=== PATIENT | male | born 1945 | race Caucasian/White ===

== ENCOUNTER → 2020-02-09 08:51 | Outpatient (BNVA) | payer MEDICARE, OTHER, SELFPAY | PROVIDERS: Family Provider Electrodiagnostic Medicine; PCP Electrodiagnostic Medicine; Visit Provider Urology | DX: N40.1 Benign prostatic hyperplasia with lower urinary tract symptoms (principal); N31.8 Other neuromuscular dysfunction of bladder; Z12.5 Encounter for screening for malignant neoplasm of prostate | CPT/HCPCS: 81001 ==

== ENCOUNTER 2020-04-17 14:14 | Inpatient (IN) | payer MEDICARE, OTHER, SELFPAY ==
[2020-04-17] VITALS (13 sets, daily range): BP systolic 133–164; BP diastolic 72–92; PULSE 65–88; RESP 14–25; TEMP 36.8–37.4; O2SAT 90–98; BMI 33.0
--- NOTE | 2020-04-17 14:36 | XRR_ITS ---
PROCEDURE INFORMATION: Exam: XR Chest, 1 View Exam date and time: 04/17/2020 3:08 PM Age: 74 years old Clinical indication: Fever TECHNIQUE: Imaging protocol: XR of the chest Views: 1 view. COMPARISON: No relevant prior studies available. FINDINGS: Lungs: There are hazy opacities at the left lung base. Pleural space: Unremarkable. No pleural effusion. No pneumothorax. Heart/Mediastinum: Possible cardiomegaly. Heart size not optimally evaluated with a single AP view of the chest. Diaphragm: Mild elevation of left hemidiaphragm. Bones/joints: There is contour abnormality at the posterior aspects of the left 4th through 6th ribs consistent with fracture of unknown chronicity. XR/XR chest 1V portable [id number] IMPRESSION: 1. Nonspecific hazy opacities at the left lung base. Differential includes atelectasis and pneumonia. 2. There is contour abnormality at the posterior aspects of the left 4th through 6th ribs consistent with fracture of unknown chronicity.
--- NOTE | 2020-04-17 15:01 | ED_ITS ---
HPI - Fever General: Chief Complaint: Fever Stated Complaint: POSSIBLE COVID Time Seen by Provider: 04/17/20 14:34 Source: patient Mode of arrival: ambulatory Limitations: no limitations History of Present Illness: HPI Narrative: Mr. Martínez is a nice 74-year-old male who comes in complaining of generalized malaise, fatigue and weakness along with sore throat and cough. States the fatigue and malaise has been present for approximately 2 weeks but the past few days she developed a sore throat and cough. Patient has been exposed to someone who has the COVID-19 virus. He is denying any abdominal pain, vomiting, urinary frequency urgency or dysuria. Denies any diarrhea. Denies any blood in the stools or black tarry stools. Patient states overall his biggest complaint is profound fatigue. Patient did have a fever today though of 100.8. He is unaware of any other exacerbating or alleviating factors. Associated symptoms: Reports chills; Deny abdominal pain, flank pain, chest pain, confusion, diarrhea, dysuria, extremity pain, headache(s), nausea or vomiting Review of Systems Const: Reports: fever(s), chills, body aches, fatigue and malaise; Denies: diaphoresis Eyes: Denies: change in vision, blurry vision, photophobia, eye discomfort, eye discharge or eye redness ENMT: Denies: throat pain, odynophagia, hoarseness, swelling of lips/tongue, ear or mastoid pain, ear discharge, change in hearing or nasal discharge Card: Denies: chest pain, palpitations, irregular heart rhythm, edema, lightheadedness, syncope, pre-syncope, dyspnea on exertion or orthopnea Resp: Denies: dyspnea, productive cough, non-productive cough, wheezing, hemoptysis or chest congestion GI: Denies: abdominal pain, nausea, vomiting, hematemesis, coffee ground emesis, heartburn, diarrhea, constipation, GI cramping, hematochezia or melena : Denies: flank pain, dysuria, urinary frequency, urinary urgency or hematuria Musc: Denies: neck pain, back pain, extremity pain, extremity swelling, joint pain, joint swelling, joint redness, joint warmth or joint stiffness Skin/Breast: Denies: rash, pruritus, erythema or skin tenderness Neuro: Denies: headache(s), numbness in extremities, weakness in extremities, sensory changes, lack of coordination, difficulty walking, dizziness, vertigo, confusion, Slurred speech present or seizure-like activity Sai/Lymph: Denies: easy bruising, easy bleeding, petechiae, purpura or enlar ged lymph nodes All/Imm: Denies: urticaria, throat swelling, tongue swelling, facial swelling or acute wheezing PFSH ED PFSH: Medical History (Updated 04/17/20 @ 16:45 by Slim Rhoades MD) BPH loc w urin obs/LUTS Diaphragm, rupture Frequency-urgency syndrome Hypercholesteremia Hypertension Surgical History H/O hernia repair H/O neck surgery H/O: knee surgery rt knee arthroscopic Family History Mother , at age 90 Alzheimer disease Father , at age 95 CHF (congestive heart failure) Social History Smoking and tobacco status: never smoked Alcohol intake: never Marital status: Current occupational status: retired History of recent travel: No Physical Exam Const: COMMON NORMALS: no acute distress, patient oriented x3, no limitations, healthy appearing and well nourished GENERAL APPEARANCE: cooperative, well kempt and well developed HENMT: COMMON NORMALS: normocephalic, atraumatic, external ears normal, EAC's normal and Normal external nose present HEAD & SCALP: normal to inspection, normocephalic and atraumatic FACE & SINUS: normal facial exam and face symmetric NOSE: Normal external nose present and Normal nares present EXTERNAL EAR: Yes external ears normal EXTERNAL AUDITORY CANAL: EAC's normal MOUTH: Normal oral and palatal mucosa present, lip normal and tongue normal Eye: COMMON NORMALS: Equal, round and reactive pupils present and conjunctivae normal GENERAL EYE: appearance normal, both eyes and all related structures ALIGNMENT: Yes alignment normal PERIORBITAL: periorbital findings normal EYELID: eyelids normal CONJUNCTIVA: Yes conjunctivae normal SCLERA: sclerae normal PUPIL: Yes Equal, round and reactive pupils present Neck/C-Spine: COMMON NORMALS: full ROM, no lymphadenopathy, supple, no meningeal signs and no JVD GENERAL: Yes normal visual inspection and Yes trachea midline Chest: COMMONS NORMALS: normal inspection of the chest and normal palpation of entire chest wall Resp: COMMON NORMALS: normal respiratory effort, No retractions, No use of accessory muscles and clear to auscultation bilaterally EFFORT & INSPECTION: Yes able to speak in complete sentences and Yes symmetric chest movement AUSCULTATION: clear to auscultation bilaterally, no crackles, no rales, no rhonchi and no wheezes Cardio: COMMON NORMALS: no JVD, regular rate, regular rhythm, S1 normal heart sound present and S2 normal heart sound present RATE: regular rate RHYTHM: regular rhythm HEART SOUNDS: S1 normal heart sound present, S2 normal heart sound present, no click, no gallops, no murmurs, no rubs and abnormal split S2 GI: COMMON NORMALS: Soft to palpation and No hepatosplenomegaly present PALPATION: Yes Soft to palpation, No Tenderness to palpation present (GI), No Guarding due to palpation present (GI), No Rigid due to palpation, Yes No hepatosplenomegaly present, No Hernia present, No Palpable mass present and No Pulsatile mass present : COMMON NORMALS: Yes no CVA tenderness BLADDER/KIDNEY EXAM: Yes no CVA tenderness Back/Pelvis: COMMON NORMALS: no CVA tenderness, thoracic and lumbar spine normal to inspection, no thoracic nor lumbar tenderness and thoraco-lumbar ROM normal Extremity: COMMON NORMALS: normal to inspection, full ROM, capillary refill normal, no joint enlargement, no clubbing, cyanosis or edema and no calf tenderness Neuro: COMMON NORMALS: patient oriented x3, CN's II-XII intact bilaterally, moves all extremities, no focal motor deficits and no sensory deficits noted MENINGEAL SIGNS: Yes no meningeal signs SPEECH: speech normal Psych: COMMON NORMALS: mental status grossly normal, Normal thought process present, cooperative, normal affect, speech normal and activity/motor behavior normal APPEARANCE: Yes well kempt SPEECH: Yes normal speech THOUGHT PROCESS: Normal thought process present Skin: COMMON NORMALS: no rashes or lesions noted, turgor normal, no jaundice, no petechiae and no mottling GENERAL SKIN EXAM: no rashes or lesions noted and turgor normal Course Vital Signs: Vital signs: Vital Signs Temperature 99.3 F 04/17/20 14:25 Pulse Rate 70 04/17/20 17:07 Respiratory Rate 16 04/17/20 17:07 Blood Pressure 133/74 04/17/20 17:07 Pulse Oximetry 98 04/17/20 17:07 MDM - Fever MDM Narrative: Medical decision making narrative: Mr. Martínez is a nice 74-year-old male who comes in with shortness of breath and hypoxia. He has a known covert exposure. He test COVID positive. He will need to be placed in the hospital on Redimisivere and Decadron. Patient does not currently look septic and is not distressed. The case was reviewed with Dr. Rhoades and he agrees to admission to the viral ICU. Lab Data: Attestation: I reviewed the patient's lab results. Labs: Lab Results 04/17/20 04/17/20 04/17/20 Range/Units 15:00 15:00 15:00 WBC 3.6 L (4.0-10.0) 10^3/ uL RBC 4.25 (4.1-5.3) 10^6/u L Hgb 13.3 (11.7-16.6) g/dL Hct 39.1 L (42.0-52.0) % MCV 92.0 (80-94) fL MCH 31.3 (28.0-34.0) pg MCHC 34.0 (30.0-36.0) g/dL RDW 13.2 (12.1-15.1) % Plt Count 164 (130-400) 10^3/c mm MPV 11.0 H (7.4-10.4) fL Neut % (Auto) 55.5 % Lymph % (Auto) 23.6 % [place] % (Auto) 18.1 % Eos % (Auto) 2.2 % Baso % (Auto) 0.3 % Neut # (Auto) 2.00 (1.8-7.7) 10^3/u L Lymph # (Auto) 0.9 (0.8-4.8) 10^3/u L [place] # (Auto) 0.7 (0.2-0.9) 10^3/u L Eos # (Auto) 0.1 (0.0-0.8) 10^3/u L Baso # (Auto) 0.0 (0.0-0.1) 10^3/u L Nucleated RBC % (a uto) 0 % Nucleated RBCs # 0.0 /100WBC D-Dimer (0-0.59) ug/mIFE U Specimen Type Sample Site ABG pH (7.35-7.45) ABG pCO2 (35-45) mmHg ABG pO2 (80.0-100.0) mmH g ABG HCO3 (22-26) mmol/L ABG Base Excess (-2.0-2.0) mmol/ L [place] Test Hematocrit (42-52) % O2 Delivery Device Press Tender Incendiary Grenade ID Sodium 138 (136-145) mmol/L Potassium 3.4 L (3.5-5.1) mmol/L Chloride 101 (98-107) mmol/L Carbon Dioxide 28 (22-29) mmol/L Anion Gap 12.4 (5-19) BUN 12 (8-23) mg/dL Creatinine 0.8 (0.7-1.2) mg/dL GFR Calculation Not Reportable Glucose 93 (65-115) mg/dL Calculated Osmolal ity 282 L (285-295) mOsm/k g Lactic Acid 1.5 (0.5-2.2) mmol/L Calcium 8.2 L (8.5-10.5) mg/dL Magnesium 1.6 L (1.7-2.3) mg/dL Total Bilirubin 0.5 (0.15-1.2) mg/dL AST 29 (0-40) U/L ALT 26 (0-41) U/L Alkaline Phosphata se 110 (40-130) IU/L Lactate Dehydrogen ase (135-225) U/L Troponin T Baselin e (0-15) ng/L C-Reactive Protein (0.0-4.9) mg/L NT-Pro-B Natriuret Pep (0-450) pg/mL Total Protein 7.3 (6.6-8.7) g/dL Albumin 3.7 (3.5-5.2) g/dL Globulin 3.6 (1.3-4.6) g/dL Influenza Type A A g (Negative) Influenza Type B A g (Negative) SARS-CoV-2 Ag (Rap id) (Negative) 04/17/20 04/17/20 04/17/20 Range/Units 15:00 15:00 15:00 WBC (4.0-10.0) 10^3/ uL RBC (4.1-5.3) 10^6/u L Hgb (11.7-16.6) g/dL Hct (42.0-52.0) % MCV (80-94) fL MCH (28.0-34.0) pg MCHC (30.0-36.0) g/dL RDW (12.1-15.1) % Plt Count (130-400) 10^3/c mm MPV (7.4-10.4) fL Neut % (Auto) % Lymph % (Auto) % [place] % (Auto) % Eos % (Auto) % Baso % (Auto) % Neut # (Auto) (1.8-7.7) 10^3/u L Lymph # (Auto) (0.8-4.8) 10^3/u L [place] # (Auto) (0.2-0.9) 10^3/u L Eos # (Auto) (0.0-0.8) 10^3/u L Baso # (Auto) (0.0-0.1) 10^3/u L Nucleated RBC % (a uto) % Nucleated RBCs # /100WBC D-Dimer (0-0.59) ug/mIFE U Specimen Type Sample Site ABG pH (7.35-7.45) ABG pCO2 (35-45) mmHg ABG pO2 (80.0-100.0) mmH g ABG HCO3 (22-26) mmol/L ABG Base Excess (-2.0-2.0) mmol/ L [place] Test Hematocrit (42-52) % O2 Delivery Device Press Tender Incendiary Grenade ID Sodium (136-145) mmol/L Potassium (3.5-5.1) mmol/L Chloride (98-107) mmol/L Carbon Dioxide (22-29) mmol/L Anion Gap (5-19) BUN (8-23) mg/dL Creatinine (0.7-1.2) mg/dL GFR Calculation Glucose (65-115) mg/dL Calculated Osmolal ity (285-295) mOsm/k g Lactic Acid (0.5-2.2) mmol/L Calcium (8.5-10.5) mg/dL Magnesium (1.7-2.3) mg/dL Total Bilirubin (0.15-1.2) mg/dL AST (0-40) U/L ALT (0-41) U/L Alkaline Phosphata se (40-130) IU/L Lactate Dehydrogen ase (135-225) U/L Troponin T Baselin e (0-15) ng/L C-Reactive Protein (0.0-4.9) mg/L NT-Pro-B Natriuret Pep 55 (0-450) pg/mL Total Protein (6.6-8.7) g/dL Albumin (3.5-5.2) g/dL Globulin (1.3-4.6) g/dL Influenza Type A A g Negative (Negative) Influenza Type B A g Negative (Negative) SARS-CoV-2 Ag (Rap id) Positive H (Negative) 04/17/20 04/17/20 04/17/20 Range/Units 15:00 15:00 15:00 WBC (4.0-10.0) 10^3/ uL RBC (4.1-5.3) 10^6/u L Hgb (11.7-16.6) g/dL Hct (42.0-52.0) % MCV (80-94) fL MCH (28.0-34.0) pg MCHC (30.0-36.0) g/dL RDW (12.1-15.1) % Plt Count (130-400) 10^3/c mm MPV (7.4-10.4) fL Neut % (Auto) % Lymph % (Auto) % [place] % (Auto) % Eos % (Auto) % Baso % (Auto) % Neut # (Auto) (1.8-7.7) 10^3/u L Lymph # (Auto) (0.8-4.8) 10^3/u L [place] # (Auto) (0.2-0.9) 10^3/u L Eos # (Auto) (0.0-0.8) 10^3/u L Baso # (Auto) (0.0-0.1) 10^3/u L Nucleated RBC % (a uto) % Nucleated RBCs # /100WBC D-Dimer 0.39 (0-0.59) ug/mIFE U Specimen Type Sample Site ABG pH (7.35-7.45) ABG pCO2 (35-45) mmHg ABG pO2 (80.0-100.0) mmH g ABG HCO3 (22-26) mmol/L ABG Base Excess (-2.0-2.0) mmol/ L [place] Test Hematocrit (42-52) % O2 Delivery Device Press Tender Incendiary Grenade ID Sodium (136-145) mmol/L Potassium (3.5-5.1) mmol/L Chloride (98-107) mmol/L Carbon Dioxide (22-29) mmol/L Anion Gap (5-19) BUN (8-23) mg/dL Creatinine (0.7-1.2) mg/dL GFR Calculation Glucose (65-115) mg/dL Calculated Osmolal ity (285-295) mOsm/k g Lactic Acid (0.5-2.2) mmol/L Calcium (8.5-10.5) mg/dL Magnesium (1.7-2.3) mg/dL Total Bilirubin (0.15-1.2) mg/dL AST (0-40) U/L ALT (0-41) U/L Alkaline Phosphata se (40-130) IU/L Lactate Dehydrogen ase 178 (135-225) U/L Troponin T Baselin e 18 H (0-15) ng/L C-Reactive Protein 8.1 H (0.0-4.9) mg/L NT-Pro-B Natriuret Pep (0-450) pg/mL Total Protein (6.6-8.7) g/dL Albumin (3.5-5.2) g/dL Globulin (1.3-4.6) g/dL Influenza Type A A g (Negative) Influenza Type B A g (Negative) SARS-CoV-2 Ag (Rap id) (Negative) 04/17/20 Range/Units 15:39 WBC (4.0-10.0) 10^3/ uL RBC (4.1-5.3) 10^6/u L Hgb (11.7-16.6) g/dL Hct (42.0-52.0) % MCV (80-94) fL MCH (28.0-34.0) pg MCHC (30.0-36.0) g/dL RDW (12.1-15.1) % Plt Count (130-400) 10^3/c mm MPV (7.4-10.4) fL Neut % (Auto) % Lymph % (Auto) % [place] % (Auto) % Eos % (Auto) % Baso % (Auto) % Neut # (Auto) (1.8-7.7) 10^3/u L Lymph # (Auto) (0.8-4.8) 10^3/u L [place] # (Auto) (0.2-0.9) 10^3/u L Eos # (Auto) (0.0-0.8) 10^3/u L Baso # (Auto) (0.0-0.1) 10^3/u L Nucleated RBC % (a uto) % Nucleated RBCs # /100WBC D-Dimer (0-0.59) ug/mIFE U Specimen Type Arterial Sample Site Radial, right ABG pH 7.43 (7.35-7.45) ABG pCO2 41.9 (35-45) mmHg ABG pO2 61.9 L (80.0-100.0) mmH g ABG HCO3 27.9 H (22-26) mmol/L ABG Base Excess 3.2 H (-2.0-2.0) mmol/ L [place] Test Pos Hematocrit 40.0 L (42-52) % O2 Delivery Device Room air Press Tender Incendiary Grenade ID [place] Sodium (136-145) mmol/L Potassium (3.5-5.1) mmol/L Chloride (98-107) mmol/L Carbon Dioxide (22-29) mmol/L Anion Gap (5-19) BUN (8-23) mg/dL Creatinine (0.7-1.2) mg/dL GFR Calculation Glucose (65-115) mg/dL Calculated Osmolal ity (285-295) mOsm/k g Lactic Acid (0.5-2.2) mmol/L Calcium (8.5-10.5) mg/dL Magnesium (1.7-2.3) mg/dL Total Bilirubin (0.15-1.2) mg/dL AST (0-40) U/L ALT (0-41) U/L Alkaline Phosphata se (40-130) IU/L Lactate Dehydrogen ase (135-225) U/L Troponin T Baselin e (0-15) ng/L C-Reactive Protein (0.0-4.9) mg/L NT-Pro-B Natriuret Pep (0-450) pg/mL Total Protein (6.6-8.7) g/dL Albumin (3.5-5.2) g/dL Globulin (1.3-4.6) g/dL Influenza Type A A g (Negative) Influenza Type B A g (Negative) SARS-CoV-2 Ag (Rap id) (Negative) Imaging Data^: CXR: Attestation: I personally reviewed and interpreted this imaging study as follows: My impression: Poor inspiration. Bilateral interstitial prominence. Cardiomegaly. EKG Data^: EKG 1: Attestation: I personally reviewed and interpreted this EKG as follows: EKG interpretation date: 04/17/20 EKG interpretation time: 16:31 Interpretation: Normal sinus rhythm at 66 beats a minute, no blocks, normal intervals, no acute ST-T wave changes. Discharge Plan Discharge Patient Disposition: Admitted As Inpatient Admit Provider: Slim Rhoades Clinical Impression: Viral pneumonitis, Hypoxemia, COVID-19 virus infection Condition: Stable Referrals: Elder Gutierrez DO [Primary Care Provider] - Discharge Date/Time: 04/17/20 17:11 Coding Level of Care Code ED Apprentice Lineman Third Step for Chg Fwd Exam Comprehensive
--- NOTE | 2020-04-17 15:11 | PC.NURSE ---
patient swabbed for COVID at this time
[2020-04-17] MEDS: ondansetron 2 mg/ML SDV 2 mL 4 MG IVP (15:12)
[2020-04-17] MEDS: sodium chloride 0.9% 1,000 ML 100 ML IV (15:12)
[2020-04-17] MEDS: piperacillin-tazobactam 3.375 GM in sodium chloride 0.9% (plus) 50 ML IV (15:12)
[2020-04-17 15:17] LABS: Basophils % 0.3 %; Eosinophils # 0.1 10^3/uL (0.0-0.8); Eosinophils % 2.2 %; Hematocrit 39.1 % (42.0-52.0); Hemoglobin 13.3 g/dL (11.7-16.6); Lymphocytes # 0.9 10^3/uL (0.8-4.8); Lymphocytes % 23.6 %; Mean Corpuscular Hemoglobin 31.3 pg (28.0-34.0); Monocytes # 0.7 10^3/uL (0.2-0.9); Monocytes % 18.1 %; Neutrophils % 55.5 %; Nucleated Red Blood Cells % 0 %; Platelet Count 164 10^3/cmm (130-400); Red Blood Count 4.25 10^6/uL (4.1-5.3); Red Cell Distribution Width 13.2 % (12.1-15.1); White Blood Count 3.6 10^3/uL (4.0-10.0)
[2020-04-17 15:37] LABS: Lactic Sepsis W/Reflex 1.5 mmol/L (0.5-2.2)
[2020-04-17 15:38] LABS: Alanine Aminotransferase 26 U/L (0-41); Albumin Level 3.7 g/dL (3.5-5.2); Alkaline Phosphatase 110 IU/L (40-130); Anion Gap 12.4 (5-19); Aspartate Amino Transferase 29 U/L (0-40); Carbon Dioxide 28 mmol/L (22-29); Chloride 101 mmol/L (98-107); Globulin 3.6 g/dL (1.3-4.6); Glucose 93 mg/dL (65-115); Magnesium 1.6 mg/dL (1.7-2.3); Potassium 3.4 mmol/L (3.5-5.1); Sodium 138 mmol/L (136-145); Total Bilirubin 0.5 mg/dL (0.15-1.2); Total Protein 7.3 g/dL (6.6-8.7)
[2020-04-17 15:46] LABS: Influenza A by IFA Negative (Negative); Influenza B by IFA Negative (Negative)
[2020-04-17 15:47] LABS: SARS Covid-2 Antigen Positive (Negative)
[2020-04-17 15:49] LABS: Blood Urea Nitrogen 12 mg/dL (8-23); Calcium 8.2 mg/dL (8.5-10.5); Osmolality Calculated 282 mOsm/kg (285-295)
[2020-04-17 15:52] LABS: ABG PCO2 41.9 mmHg (35-45); ABG PH Result 7.43 (7.35-7.45); Base Excess ABG 3.2 mmol/L (-2.0-2.0); Blood Gas Allen Test Pos; Blood Gas Operator Identificat MONRO; Blood Gas Sample Site Radial, right; Blood Gas Sample Type Arterial; HCO3 ABG 27.9 mmol/L (22-26); Oxygen Device ROOM AIR; PO2 ABG 61.9 mmHg (80.0-100.0)
--- NOTE | 2020-04-17 15:52 | ECG_ITS ---
[facility] Test Date: 2020-04-17 Pat Name: Omid Martínez Department: Room: Gender: Male History Teacher: : 1945 Requested By: Dominique Humphrey Order Number: [id number] Gonzales MD: Gwen Gunn M.D. Measurements Intervals [place] Rate: 66 P: 24 NV: 200 QRS: 42 QRSD: 100 T: 29 QT: 399 QTc: 420 Interpretive Statements SINUS RHYTHM No previous ECG available for comparison Electronically Signed On 04-18-2020 7:51:39 CDT by Gwen Gunn M.D. [email or web address]
--- NOTE | 2020-04-17 15:52 | CTR_ITS ---
PROCEDURE INFORMATION: Exam: CT Angiography Chest With Contrast Exam date and time: 04/17/2020 4:02 PM Age: 74 years old Clinical indication: Shortness of breath; Prior surgery; Surgery date: 6+ months; Surgery type: Diaphragm; Patient HX: Covid + w hypoxia and cough TECHNIQUE: Imaging protocol: Computed tomographic angiography of the chest with intravenous contrast. 3D rendering (Not supervised by radiologist): MIP and/or 3D reconstructed images were created by the technologist. Radiation optimization: All CT scans at this facility use at least one of these dose optimization techniques: automated exposure control; mA and/or kV adjustment per patient size (includes targeted exams where dose is matched to clinical indication); or iterative reconstruction. Contrast material: OMNI 350; Contrast volume: 95 ml; Contrast route: INTRAVENOUS (IV); COMPARISON: CR XR chest 1V portable [id number] 04/17/2020 2:53 PM RADIATION DOSE METRICS: Total DLP (mGy-cm): 606.12 FINDINGS: Pulmonary arteries: Normal. No pulmonary emboli. Aorta: Unremarkable. No aortic aneurysm. No aortic dissection. Lungs: There are scattered patchy ground-glass opacities in the bilateral lungs. Streaky densities at the lung bases are most consistent with scarring and/or atelectasis. There are pulmonary parenchymal calcifications consistent with remote granulomatous organism exposure. Pleural space: Unremarkable. No pneumothorax. No pleural effusion. Heart: Unremarkable. No cardiomegaly. No pericardial effusion. Mediastinal space: Small hiatal hernia. There is esophageal mucosal thickening. Lymph nodes: There are calcified mediastinal and perihilar lymph nodes consistent with prior granulomatous exposure. There is perihilar and mediastinal lymphadenopathy. Bones/joints: Chronic/healed fractures of the left 4th through 8th ribs. There is partial osseous fusion between the left 5th through 7th ribs. Soft tissues: Unremarkable. CT/CT angio chest PE protcl [id number] IMPRESSION: 1. There are scattered patchy bilateral pulmonary ground-glass opacities. Differential includes atypical pneumonia and pulmonary edema. 2. Perihilar and mediastinal lymphadenopathy. 3. There is esophageal mucosal thickening. Differential includes esophagitis and neoplasm. Radiation Dose CTDIVOL = (mGy): DLP = 606.12 (mGy-cm)
[2020-04-17 15:58] LABS: NT Pro B Type Natriuretic Pept 55 pg/mL (0-450)
[2020-04-17 16:21] LABS: C Reactive Protein 8.1 mg/L (0.0-4.9); D Dimer 0.39 ug/mIFEU (0-0.59); Lactate Dehydrogenase 178 U/L (135-225)
[2020-04-17 16:22] LABS: Troponin(5th) Baseline 18 ng/L (0-15)
--- NOTE | 2020-04-17 16:41 | PM.HP ---
Providers/Chief Complaint Primary Care Provider: Elder Gutierrez DO Chief Complaint: POSSIBLE COVID History of Present Illness Omid Martínez is a 74 year old male with past medical history of hypertension, type 2 diabetes mellitus who presented to the ER today because of fever last night as high up 100.3 Fahrenheit. As per the patient he has been having weakness and feeling low of energy for last 2 months getting worse for last 2 weeks. He is also been complaining of cough with mild expectoration. He states he feels as if he is not able to catch her breath for last 1 week. He thinks he got the infection from 1 of his friends at [facility] 2 weeks ago. Apparently the friend is also positive for COVID-19 has been treated for the same at [place] for last 10 days. He denies of having any headache, dizziness, chest pain, palpitations, nausea, vomiting. He states his symptoms are mostly feeling weak, generalized body pain generalized joint pains, stuffiness of the nose. He denies of having any changes in sense of smell and taste. His blood work in the ER showed white count of 3.6, hemoglobin of 13.3, d-dimer of 0.3, ABG showing a PCO2 of 41, PO2 of 61, sodium of 138, potassium of 3.4, lactate of 1.5, calcium of 8.2, rapid antigen test positive. Chest x-ray showed nonspecific hazy opacities in left lung base. Review of Systems General: Reports: 10 or more systems reviewed and unremarkable except in HPI and below Const: Denies: fever(s), chills, body aches, change in appetite, change in weight, malaise, night sweats, diaphoresis, change in sleep pattern, daytime sleepiness or snoring Eyes: Denies: change in vision, blurry vision, photophobia, eye discomfort or eye discharge ENMT: Denies: throat pain, enlarged tonsils, hoarseness, mouth pain, oral sores, dry mouth, tinnitus, nasal congestion or post nasal drip Card: Denies: chest pain, palpitations, irregular heart rhythm, edema, swelling of feet/ankles, lightheadedness, syncope, pre-syncope, dyspnea on exertion, orthopnea, leg pain with exertion or acrocyanosis Resp: Denies: dyspnea, productive cough, non-productive cough, wheezing, stridor, pain on inspiration, change in phlegm color, hemoptysis or chest congestion GI: Denies: abdominal pain, nausea, vomiting, hematemesis, coffee ground emesis, dysphagia, heartburn, diarrhea, constipation, bloating, GI cramping, change in bowel habits, pain on defecation, hematochezia or melena : Denies: flank pain, difficulty urinating, dysuria, urinary frequency, urinary urgency, urinary hesitancy, urinary dribbling, difficulty starting urination, change in urine stream, nocturia or hematuria Musc: Denies: neck pain, back pain, extremity pain, joint pain, joint swelling, joint redness, joint stiffness or limited range of motion Neuro: Denies: headache(s), numbness in extremities, weakness in extremities, sensory changes, lack of coordination, difficulty walking, frequent falls, dizziness, vertigo, confusion, Slurred speech present, difficulty communicating thoughts or seizure-like activity Psych: Denies: anxiety, depression, mood swings, panic attacks, hopelessness or irritability Endo: Denies: polyuria, polydipsia, tired all the time, cold intolerance, excessive sweating, flushing or heat intolerance Sai/Lymph: Denies: easy bruising or easy bleeding All/Imm: Denies: tongue swelling, facial swelling or acute wheezing Medications/Allergies Home Medications Medication Instructions Recorded Confirmed Last Taken Type alfuzosin 10 mg tablet,extended 10 mg PO DAILY #90 tab 02/09/20 04/17/20 Unknown Rx release 24 hr amlodipine 10 mg tablet 10 mg PO DAILY 02/09/20 04/17/20 Unknown History finasteride 5 mg tablet 5 mg PO DAILY 02/09/20 04/17/20 Unknown History hydrochlorothiazide 12.5 mg tablet 12.5 mg PO DAILY 02/09/20 04/17/20 Unknown History lovastatin 20 mg tablet 20 mg PO DAILY 02/09/20 04/17/20 Unknown History metformin 1,000 mg tablet 1,000 mg PO BID 02/09/20 04/17/20 Unknown History metoprolol succinate 50 mg 50 mg PO DAILY 02/09/20 04/17/20 Unknown History tablet,extended release 24 hr oxybutynin chloride 10 mg 10 mg PO DAILY #30 tab 02/09/20 04/17/20 Unknown Rx tablet,extended release 24 hr sulindac 150 mg tablet 150 mg PO BID 02/09/20 04/17/20 Unknown History Allergies Allergy/AdvReac Type Severity Reaction Status Date / Time No Known Allergies Allergy Unverified 02/09/20 08:43 PFSH Acute PFSH: Medical History BPH loc w urin obs/LUTS Diaphragm, rupture Frequency-urgency syndrome Hypercholesteremia Hypertension Surgical History H/O hernia repair H/O neck surgery H/O: knee surgery rt knee arthroscopic Family History Mother , at age 90 Alzheimer disease Father , at age 95 CHF (congestive heart failure) Social History Smoking and tobacco status: never smoked Alcohol intake: never Marital status: Current occupational status: retired History of recent travel: No Vitals/I&O/Wt Last Vital Signs Temp 99.3 F 04/17/20 14:25 Pulse 88 04/17/20 15:10 Resp 20 H 04/17/20 15:10 BP 148/88 04/17/20 15:10 Pulse Ox 94 04/17/20 15:10 Weight last 48 hrs Weight 113.398 kg Physical Exam Narrative: EXAM NARRATIVE: General: No acute distress, AO x3 HEENT: PERRLA, pupils bilaterally equal and reactive Chest: Normal vesicular breath sounds, bilateral occasional rhonchi present, equal good air entry bilaterally CVS: S1-S2 regular, no murmurs, no tachycardia, no gallops, no rubs Abdomen: Soft, nontender, no organomegaly, bowel sounds present Neuro: No focal deficits, no facial deformity, AO x3, power 5/5 in all limbs Data : 04/17/20 15:00 04/17/20 15:00 A&P Assessment and plan (1) COVID-19 virus infection: Status: Acute (2) Hypoxemia: Status: Acute (3) Viral pneumonitis: Status: Acute (4) Hypertension: Status: Acute (5) BPH loc w urin obs/LUTS: Status: Acute (6) Diabetes mellitus: Status: Acute Additional A&P Information Acute hypoxic respiratory failure: Most likely because of COVID-19 pneumonia: Patient requiring 3 L to maintain saturation over 90%. Moderate covered pneumonia. Start patient on antiviral treatment with Remdesevir. Dexamethasone 6 mg IV for 5 days. Vitamin C, zinc. Tessalon Perles as needed. Advair and Spiriva formulary treatment. Oxygen supplementation keeping saturation over 90%. Incentive spirometry, flutter valve. Continue to monitor inflammatory markers including LDH, ferritin, CRP, ESR, d-dimer daily. Check CTA PE to rule out PE for now. Start Eliquis 5 mg twice daily. CTA PE will tell for how long patient would require anticoagulation as an outpatient. Check procalcitonin, MRSA swab, sputum for Gram stain. For now start patient on levofloxacin 500 mg QD for now. HTN: Goal BP less thna 140/90 mmhg. C/w home dose of Amlo, metoprolol for now. Hold hydrochlorothiazide for now. Gentle IV hydration with normal saline at 75 cc/h. Type 2 DM: Hold OHA Sliding scale insulin Continue chronic medication like alfuzosin, finasteride, statins. Nonspecific thickening of the esophagus: Patient has been complaining of weakness for last 2 months. Not sure about weight loss. Cannot rule out malignancy. Most likely need to follow-up as an outpatient with EGD and colonoscopy once COVID-19 negative. We will check H. pylori. Full code. Cardiac diabetic diet. Eliquis will also help with DVT prophylaxis. Protonix for PUD prophylaxis Attestations Medical Necessity Statement*: More than 2 midnights for acute hypoxia because of COVID-19 pneumonia Time Spent in Patient Care: Greater than 35 minutes (>than 50% of time spent in counselling and/or direct pt care on unit). 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
[2020-04-17] MEDS: dexamethasone 10 mg/mL INJ 8 MG IVP (16:50)
[2020-04-17] MEDS: magnesium sulfate premix 2 GM/50 ML PIGGYBACK IV (16:50)
[2020-04-17] MEDS: iohexol 350 mg/mL 100 mL Btl IV (17:17)
--- NOTE | 2020-04-17 17:52 | ECG_ITS ---
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 Measurements Intervals Rogers Rate: 67 P: 24 [place]: 210 QRS: 9 QRSD: 109 T: 15 QT: 387 QTc: 411 Interpretive Statements SINUS RHYTHM WITH FIRST DEGREE AV BLOCK Compared to ECG 04/17/2020 16:31:20 First degree AV block now present Electronically Signed On 04-18-2020 8:19:35 CDT by Gwen Gunn M.D. [email or web address]
--- NOTE | 2020-04-17 17:54 | PC.NURSE ---
BG 109 at this time no insulin needed per sliding scale
[2020-04-17] MEDS: ascorbic acid 500 mg Tablet PO (18:08)
[2020-04-17] MEDS: apixaban 5 mg Tablet PO (18:08)
[2020-04-17 18:26] LABS: Procalcitonin 0.06 ng/mL (0-0.5)
[2020-04-17 18:34] LABS: Add Urine Microscopic? NO
[2020-04-17 18:36] LABS: Iron 28 ug/dL (59-158); Percent Saturation 12.6 % (20-50); Total Iron Binding Capacity 222 mcg/dl; Unsaturated Iron Binding 194 ug/dL (112-347)
[2020-04-17 19:02] LABS: Troponin 5 2HR 15.39 ng/L (0-15)
[2020-04-17 19:10] LABS: Thyroid Stimulating Hormone 1.58 uIU/mL (0.27-4.20)
[2020-04-17 19:14] LABS: Bilirubin Urine Neg (NEGATIVE); Blood Urine Neg (Negative); Glucose Urine UA Norm (Normal); Ketones Urine Negative (Negative); Leukocyte Esterase Urine Negative (Negative); Nitrate Urine Negative (Negative); Protein Urine Neg (Negative); Urine Appearance Clear (CLEAR); Urine Color Yellow (Yellow); Urobilinogen Urine Norm (Negative); pH Urine 5 (5-7)
[2020-04-17 19:16] LABS: Troponin 5 2HR Delta -2.61 ABS# (0-10)
[2020-04-17 21:57] LABS: Troponin 5 6HR 14.94 ng/L (0-15)
[2020-04-17 22:05] LABS: Troponin 5 6HR Delta -3.06 ng/L (0-12)
[2020-04-18] VITALS (24 sets, daily range): BP systolic 125–160; BP diastolic 60–86; PULSE 52–93; RESP 6–25; TEMP 36.4–37; O2SAT 90–99
[2020-04-18] MEDS: sodium chloride 0.9% 1,000 ML 100 ML IV (05:49)
[2020-04-18] MEDS: levoFLOXacin 500 mg Tablet PO (05:49)
[2020-04-18 05:55] LABS: Hematocrit 40.4 % (42.0-52.0); Hemoglobin 13.7 g/dL (11.7-16.6); Lymphocytes # 0.8 10^3/uL (0.8-4.8); Lymphocytes % 17.9 %; Mean Corpuscular HGB Conc 33.9 g/dL (30.0-36.0); Mean Corpuscular Hemoglobin 30.9 pg (28.0-34.0); Mean Corpuscular Volume 91.2 fL (80-94); Mean Platelet Volume 11.1 fL (7.4-10.4); Monocytes # 0.3 10^3/uL (0.2-0.9); Monocytes % 6.9 %; Neutrophils # 3.35 10^3/uL (1.8-7.7); Nucleated Red Blood Cells % 0 %; Platelet Count 173 10^3/cmm (130-400); Red Blood Count 4.43 10^6/uL (4.1-5.3); Red Cell Distribution Width 12.9 % (12.1-15.1); White Blood Count 4.5 10^3/uL (4.0-10.0)
[2020-04-18 06:11] LABS: Fibrinogen 461 mg/dL (174-498)
[2020-04-18 06:17] LABS: D Dimer 0.39 ug/mIFEU (0-0.59)
[2020-04-18 06:19] LABS: Lactate Dehydrogenase 168 U/L (135-225)
[2020-04-18 06:20] LABS: Alanine Aminotransferase 25 U/L (0-41); Albumin Level 3.7 g/dL (3.5-5.2); Alkaline Phosphatase 109 IU/L (40-130); Anion Gap 11.8 (5-19); Aspartate Amino Transferase 21 U/L (0-40); Blood Urea Nitrogen 15 mg/dL (8-23); C Reactive Protein 8.5 mg/L (0.0-4.9); Calcium 8.1 mg/dL (8.5-10.5); Carbon Dioxide 29 mmol/L (22-29); Chloride 102 mmol/L (98-107); Creatine Phosphokinase 83 U/L (39-308); Globulin 3.7 g/dL (1.3-4.6); Glucose 155 mg/dL (65-115); Magnesium 1.9 mg/dL (1.7-2.3); Osmolality Calculated 287 mOsm/kg (285-295); Potassium 3.8 mmol/L (3.5-5.1); Sodium 139 mmol/L (136-145); Total Bilirubin 0.4 mg/dL (0.15-1.2); Total Protein 7.4 g/dL (6.6-8.7)
[2020-04-18] MEDS: apixaban 5 mg Tablet PO ×2 (09:04→17:00)
[2020-04-18] MEDS: ascorbic acid 500 mg Tablet PO ×2 (09:05→16:59)
[2020-04-18] MEDS: metoprolol succinate ER (24 HR) 50 mg Tablet PO (09:06)
[2020-04-18] MEDS: oxybutynin chloride XL 5 MG TABLET 10 MG PO (09:06)
[2020-04-18] MEDS: atorvastatin 40 mg Tablet 10 MG PO (09:06)
[2020-04-18] MEDS: dexamethasone 10 mg/mL INJ 6 MG IVP (09:07)
[2020-04-18] MEDS: zinc gluconate 50 mg Tablet PO (09:07)
[2020-04-18] MEDS: alfuzosin 10 mg ER Tablet PO (09:07)
[2020-04-18] MEDS: pantoprazole DR 40 mg Tablet PO (09:07)
[2020-04-18] MEDS: amlodipine 10 mg Tablet PO (09:07)
[2020-04-18] MEDS: finasteride 5 mg Tablet PO (09:07)
[2020-04-18] MEDS: bisacodyl 5 mg Tablet 10 MG PO (12:17)
[2020-04-18 15:46] LABS: Glucose Point of Care 188 mg/dL (70-110)
[2020-04-18 15:46] LABS: Glucose Point of Care 124 mg/dL (70-110)
[2020-04-18 15:46] LABS: Glucose Point of Care 215 mg/dL (70-110)
[2020-04-18 15:46] LABS: Glucose Point of Care 167 mg/dL (70-110)
[2020-04-18 15:46] LABS: Glucose Point of Care 109 mg/dL (70-110)
[2020-04-18] MEDS: docusate sodium 100 mg Capsule PO (18:54)
[2020-04-18] MEDS: polyethylene glycol 3350 Pkt 17 gm PO (18:54)
--- NOTE | 2020-04-18 19:40 | P.PN_ITS ---
Vitals/I&O/Wt Last Vital Signs Temp 97.6 F 04/18/20 17:10 Pulse 63 04/18/20 17:10 Resp 21 H 04/18/20 17:10 BP 125/73 04/18/20 17:10 Pulse Ox 97 04/18/20 17:10 04/18/20 04/18/20 04/18/20 06:59 14:59 22:59 Intake Total 1000 / 1000 1074 / 1074 1254 / 2328 Output Total 1100 / 1300 390 / 390 1000 / 1390 Balance -100 / -300 684 / 684 254 / 938 Weight last 48 hrs Weight 112.99 kg Weight 113.398 kg Physical Exam Const: COMMON NORMALS: no acute distress and patient oriented x3 HENMT: COMMON NORMALS: normocephalic HEAD & SCALP: normocephalic Neck/C-Spine: COMMON NORMALS: no JVD Resp: COMMON NORMALS: normal respiratory effort, No retractions, No use of accessory muscles and clear to auscultation bilaterally AUSCULTATION: clear to auscultation bilaterally Cardio: COMMON NORMALS: no JVD, regular rate, regular rhythm, S1 normal heart sound present and S2 normal heart sound present RATE: regular rate RHYTHM: regular rhythm HEART SOUNDS: S1 normal heart sound present and S2 normal he art sound present GI: COMMON NORMALS: Normal to inspection, nondistended, normoactive bowel sounds present, Soft to palpation, non-tender, No hepatosplenomegaly present, no masses and no bruits PALPATION: Yes Soft to palpation and Yes No hepatosplenomegaly present Extremity: COMMON NORMALS: capillary refill normal, no clubbing, cyanosis or edema, no calf tenderness and no pedal edema Neuro: COMMON NORMALS: patient oriented x3 Psych: COMMON NORMALS: mental status grossly normal Data : 04/18/20 05:40 04/18/20 05:40 Micro: Microbiology 04/17/20 18:20 Blood Culture - Preliminary Blood NEGATIVE TO DATE 04/17/20 15:00 Blood Culture - Preliminary Blood NEGATIVE TO DATE 04/17/20 18:20 MRSA Culture - Final Nose 04/17/20 18:20 Legionella Urinary Antigen - Final Urine,Clean Catch A&P Assessment and plan (1) COVID-19 virus infection: Status: Acute (2) Hypoxemia: Status: Acute (3) Viral pneumonitis: Status: Acute (4) Hypertension: Status: Acute (5) BPH loc w urin obs/LUTS: Status: Acute (6) Diabetes mellitus: Status: Acute Additional A&P Information Acute hypoxic respiratory failure: Most likely because of COVID-19 pneumonia: Patient requiring 2 L to maintain saturation over 90%. Moderate covered pneumonia. Start patient on antiviral treatment with Remdesevir. Dexamethasone 6 mg IV for 5 days. Vitamin C, zinc. Tessalon Perles as needed. Advair and Spiriva formulary treatment. Oxygen supplementation keeping saturation over 90%. Incentive spirometry, flutter valve. Continue to monitor inflammatory markers including LDH, ferritin, CRP, ESR, d- dimer daily. CTA negative for PE, low likelihood of pulmonary embolism, stop Eliquis, start Lovenox 40 mg daily starting tomorrow Continue Levaquin 500 mg p.o. daily HTN: Monitor blood pressure C/w home dose of Amlo, metoprolol for now. Hold hydrochlorothiazide for now. Stop IV hydration Type 2 DM: Hold OHA Sliding scale insulin Continue chronic medication like alfuzosin, finasteride, statins. Nonspecific thickening of the esophagus: Patient has been complaining of weakness for last 2 months. Not sure about weight loss. Cannot rule out malignancy. Most likely need to follow-up as an outpatient with EGD and colonoscopy once COVID-19 negative. Check H. pylori Full code. Cardiac diabetic diet. Eliquis will also help with DVT prophylaxis. 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
[2020-04-18 20:39] LABS: Glucose Point of Care 236 mg/dL (70-110)
[2020-04-19] VITALS: BP 134/69; PULSE 54; RESP 18; TEMP 36.7; O2SAT 94
[2020-04-19 04:00] VITALS: BP 134/69; PULSE 51; RESP 16; TEMP 36.6; O2SAT 97
[2020-04-19 05:18] VITALS: BMI 32.8
[2020-04-19 05:24] LABS: Basophils % 0.1 %; Hematocrit 39.9 % (42.0-52.0); Hemoglobin 12.8 g/dL (11.7-16.6); Lymphocytes # 1.1 10^3/uL (0.8-4.8); Lymphocytes % 11.7 %; Mean Corpuscular HGB Conc 32.1 g/dL (30.0-36.0); Mean Corpuscular Hemoglobin 30.5 pg (28.0-34.0); Mean Corpuscular Volume 95.2 fL (80-94); Mean Platelet Volume 11.2 fL (7.4-10.4); Monocytes # 0.7 10^3/uL (0.2-0.9); Neutrophils # 7.48 10^3/uL (1.8-7.7); Neutrophils % 80.9 %; Nucleated Red Blood Cells % 0 %; Platelet Count 175 10^3/cmm (130-400); Red Blood Count 4.19 10^6/uL (4.1-5.3); Red Cell Distribution Width 13.3 % (12.1-15.1); White Blood Count 9.3 10^3/uL (4.0-10.0)
[2020-04-19] MEDS: levoFLOXacin 500 mg Tablet PO (05:25)
[2020-04-19 05:48] LABS: Alanine Aminotransferase 21 U/L (0-41); Albumin Level 3.5 g/dL (3.5-5.2); Alkaline Phosphatase 96 IU/L (40-130); Aspartate Amino Transferase 16 U/L (0-40); Blood Urea Nitrogen 19 mg/dL (8-23); Carbon Dioxide 26 mmol/L (22-29); Chloride 105 mmol/L (98-107); Globulin 3.5 g/dL (1.3-4.6); Glucose 133 mg/dL (65-115); Magnesium 1.9 mg/dL (1.7-2.3); Osmolality Calculated 288 mOsm/kg (285-295); Phosphorus 3.3 mg/dL (2.5-4.5); Sodium 140 mmol/L (136-145); Total Bilirubin 0.4 mg/dL (0.15-1.2)
[2020-04-19 06:29] LABS: Glucose Point of Care 117 mg/dL (70-110)
[2020-04-19 07:56] LABS: D Dimer 0.39 ug/mIFEU (0-0.59)
[2020-04-19 07:59] LABS: Ferritin 414 ng/mL (30-400); Lactate Dehydrogenase 199 U/L (135-225)
[2020-04-19 08:00] VITALS: BP 145/103; PULSE 58; RESP 14; TEMP 35.7; O2SAT 96
[2020-04-19] MEDS: enoxaparin 40 mg/0.4 mL Syringe SUBCUT (09:01)
[2020-04-19] MEDS: amlodipine 10 mg Tablet PO (09:02)
[2020-04-19] MEDS: ascorbic acid 500 mg Tablet PO (09:02)
[2020-04-19] MEDS: alfuzosin 10 mg ER Tablet PO (09:02)
[2020-04-19] MEDS: atorvastatin 40 mg Tablet 10 MG PO (09:03)
[2020-04-19] MEDS: dexamethasone 10 mg/mL INJ 6 MG IVP (09:07)
[2020-04-19] MEDS: docusate sodium 100 mg Capsule PO (09:08)
[2020-04-19] MEDS: finasteride 5 mg Tablet PO (09:08)
[2020-04-19] MEDS: oxybutynin chloride XL 5 MG TABLET 10 MG PO (09:09)
[2020-04-19] MEDS: metoprolol succinate ER (24 HR) 50 mg Tablet PO (09:09)
[2020-04-19] MEDS: pantoprazole DR 40 mg Tablet PO (09:10)
[2020-04-19] MEDS: polyethylene glycol 3350 Pkt 17 gm PO (09:10)
[2020-04-19] MEDS: zinc gluconate 50 mg Tablet PO (09:11)
[2020-04-19 09:38] LABS: Erythrocyte Sedimentation Rate 20 mm/hr (0-10)
[2020-04-19 11:46] LABS: Glucose Point of Care 124 mg/dL (70-110)
[2020-04-19 12:00] VITALS: BP 153/90; PULSE 65; RESP 20; TEMP 35.9; O2SAT 93
--- NOTE | 2020-04-19 14:31 | PC.NURSE ---
OXYGEN REMOVED PER RESP THERAPY FOR HOME O2 EVALUATION.
--- NOTE | 2020-04-19 14:38 | PM.DCS ---
Discharge Providers Date of Admission: 04/17/20 16:37 Date of Discharge: April 19, 2020 Attending Provider at Admission: Slim Rhoades MD Attending Provider at Discharge: Niko Pierce MD Primary Care Provider: Elder Gutierrez DO Diagnoses at Discharge Discharge Diagnosis (1) COVID-19 virus infection: Status: Acute (2) Hypoxemia: Status: Acute (3) Viral pneumonitis: Status: Acute (4) Hypertension: Status: Acute (5) BPH loc w urin obs/LUTS: Status: Acute (6) Diabetes mellitus: Status: Acute Reason for Visit Reason for Visit: POSSIBLE COVID Hospital Course Discharge Summary: This is a 74-year-old male with a past medical history of hypertension, type 2 diabetes mellitus, who presents to [facility] due to fevers, cough, shortness of breath Patient was admitted to [facility] for acute hypoxic respiratory failure secondary to COVID-19, viral pneumonitis. Patient CT angiogram was negative for acute pulmonary embolism, blood cultures no growth so far, sputum cultures no clinically significant growth, patient clinically improved, ambulating without significant symptomatology, discharged on 2 L nasal cannula, steroid taper, Levaquin, Advair and Spiriva, with close follow-up with primary care in [address] angiogram did show nonspecific thickening of the distal esophagus, he has been complaining of weakness for many months, nonspecific abdominal pain, patient will require an outpatient EGD and colonoscopy in the near future, patient should follow-up with Dr. Pimentel in the next month. Physical Exam Const: COMMON NORMALS: no acute distress and patient oriented x3 HENMT: COMMON NORMALS: normocephalic HEAD & SCALP: normocephalic Neck/C-Spine: COMMON NORMALS: no JVD Resp: COMMON NORMALS: normal respiratory effort, No retractions, No use of accessory muscles and clear to auscultation bilaterally AUSCULTATION: clear to auscultation bilaterally Cardio: COMMON NORMALS: no JVD, regular rate, regular rhythm, S1 normal heart sound present and S2 normal heart sound present RATE: regular rate RHYTHM: regular rhythm HEART SOUNDS: S1 normal heart sound present and S2 normal heart sound present GI: COMMON NORMALS: Normal to inspection, nondistended, normoactive bowel sounds present, Soft to palpation, non-tender, No hepatosplenomegaly present, no masses and no bruits PALPATION: Yes Soft to palpation and Yes No hepatosplenomegaly present Extremity: COMMON NORMALS: capillary refill normal, no clubbing, cyanosis or edema, no calf tenderness and no pedal edema Neuro: COMMON NORMALS: patient oriented x3 Psych: COMMON NORMALS: mental status grossly normal Discharge Data Data Completed and Pending: Completed Studies During Hospitalization Category Date Time Status CT angio chest PE protcl [id number] Stat Cat Scan 04/17/20 15:52 Completed XR chest 1V brett ble [id number] Stat Exams 04/17/20 14:36 Completed Pending at discharge Category Date Time Status Blood Culture Sta t Lab 04/17/20 18:20 Results Complete Blood Co unt w/Auto AM LABS Lab 04/20/20 04:00 Ordered Complete Blood Co unt w/Auto AM LABS Lab 04/21/20 04:00 Ordered Comprehensive Met abolic Panel AM LA BS Lab 04/20/20 04:00 Ordered Comprehensive Met abolic Panel AM LA BS Lab 04/21/20 04:00 Ordered Magnesium AM LABS Lab 04/20/20 04:00 Ordered Magnesium AM LABS Lab 04/21/20 04:00 Ordered Phosphorus AM LAB S Lab 04/20/20 04:00 Ordered Phosphorus AM LAB S Lab 04/21/20 04:00 Ordered Sputum Culture an d Gram Stain Stat Lab 04/17/20 17:30 Uncollected Labs from last 24 hours 04/19/20 04/19/20 04/19/20 11:23 08:45 06:24 WBC RBC Hgb Hct MCV MCH MCHC RDW Plt Count MPV Neut % (Auto) Lymph % (Auto) [place] % (Auto) Eos % (Auto) Baso % (Auto) Neut # (Auto) Lymph # (Auto) [place] # (Auto) Eos # (Auto) Baso # (Auto) Nucleated RBC % (a uto) Nucleated RBCs # ESR 20 H D-Dimer Sodium Potassium Chloride Carbon Dioxide Anion Gap BUN Creatinine GFR Calculation Glucose POC Glucose 124 117 Calculated Osmolal ity Calcium Phosphorus Magnesium Ferritin Total Bilirubin AST ALT Alkaline Phosphata se Lactate Dehydrogen ase C-Reactive Protein Total Protein Albumin Globulin 04/19/20 04/19/20 04/19/20 05:15 05:15 05:15 WBC RBC Hgb Hct MCV MCH MCHC RDW Plt Count MPV Neut % (Auto) Lymph % (Auto) [place] % (Auto) Eos % (Auto) Baso % (Auto) Neut # (Auto) Lymph # (Auto) [place] # (Auto) Eos # (Auto) Baso # (Auto) Nucleated RBC % (a uto) Nucleated RBCs # ESR Cancelled D-Dimer 0.39 Sodium Potassium Chloride Carbon Dioxide Anion Gap BUN Creatinine GFR Calculation Glucose POC Glucose Calculated Osmolal ity Calcium Phosphorus Magnesium Ferritin 414 H Total Bilirubin AST ALT Alkaline Phosphata se Lactate Dehydrogen ase 199 C-Reactive Protein 4.0 Total Protein Albumin Globulin 04/19/20 04/19/20 04/18/20 05:15 05:15 20:30 WBC 9.3 RBC 4.19 Hgb 12.8 Hct 39.9 L MCV 95.2 H MCH 30.5 MCHC 32.1 D RDW 13.3 Plt Count 175 MPV 11.2 H Neut % (Auto) 80.9 Lymph % (Auto) 11.7 [place] % (Auto) 7.0 Eos % (Auto) 0.0 Baso % (Auto) 0.1 Neut # (Auto) 7.48 Lymph # (Auto) 1.1 [place] # (Auto) 0.7 Eos # (Auto) 0.0 Baso # (Auto) 0.0 Nucleated RBC % (a uto) 0 Nucleated RBCs # 0.0 ESR D-Dimer Sodium 140 Potassium 4.0 Chloride 105 Carbon Dioxide 26 Anion Gap 13.0 BUN 19 Creatinine 0.6 L GFR Calculation Not Reportable Glucose 133 H POC Glucose 236 Calculated Osmolal ity 288 Calcium 8.0 L Phosphorus 3.3 Magnesium 1.9 Ferritin Total Bilirubin 0.4 AST 16 ALT 21 Alkaline Phosphata se 96 Lactate Dehydrogen ase C-Reactive Protein Total Protein 7.0 Albumin 3.5 Globulin 3.5 04/18/20 04/18/20 04/18/20 15:33 11:14 07:48 WBC RBC Hgb Hct MCV MCH MCHC RDW Plt Count MPV Neut % (Auto) Lymph % (Auto) [place] % (Auto) Eos % (Auto) Baso % (Auto) Neut # (Auto) Lymph # (Auto) [place] # (Auto) Eos # (Auto) Baso # (Auto) Nucleated RBC % (a uto) Nucleated RBCs # ESR D-Dimer Sodium Potassium Chloride Carbon Dioxide Anion Gap BUN Creatinine GFR Calculation Glucose POC Glucose 167 188 124 Calculated Osmolal ity Calcium Phosphorus Magnesium Ferritin Total Bilirubin AST ALT Alkaline Phosphata se Lactate Dehydrogen ase C-Reactive Protein Total Protein Albumin Globulin 04/17/20 04/17/20 20:12 17:46 WBC RBC Hgb Hct MCV MCH MCHC RDW Plt Count MPV Neut % (Auto) Lymph % (Auto) [place] % (Auto) Eos % (Auto) Baso % (Auto) Neut # (Auto) Lymph # (Auto) [place] # (Auto) Eos # (Auto) Baso # (Auto) Nucleated RBC % (a uto) Nucleated RBCs # ESR D-Dimer Sodium Potassium Chloride Carbon Dioxide Anion Gap BUN Creatinine GFR Calculation Glucose POC Glucose 215 109 Calculated Osmolal ity Calcium Phosphorus Magnesium Ferritin Total Bilirubin AST ALT Alkaline Phosphata se Lactate Dehydrogen ase C-Reactive Protein Total Protein Albumin Globulin Vitals: Last Vital Signs Temp 96.6 F L 04/19/20 12:00 Pulse 65 04/19/20 12:00 Resp 20 H 04/19/20 12:00 BP 153/90 04/19/20 12:00 Pulse Ox 93 04/19/20 12:00 Discharge Plan Discharge Patient Disposition: Home Condition: Stable Prescriptions: New polyethylene glycol 3350 17 gram Powder In Packet 17 g PO DAILY PRN (Reason: constipation) 30 Days Qty: 30 RF: 0 benzonatate 100 mg Capsule 100 mg PO TID PRN (Reason: Cough) 15 Days Qty: 45 RF: 0 pantoprazole 40 mg Tablet,Delayed Release (Dr/Ec) 40 mg PO DAILY 30 Days Qty: 30 RF: 0 docusate sodium 100 mg Capsule 100 mg PO BID 30 Days Qty: 60 RF: 0 levofloxacin 500 mg Tablet 500 mg PO DAILY@0600 5 Days Qty: 5 RF: 0 tiotropium bromide 18 mcg capsule, w/inhalation device 1 cap inhalation DAILY.RESPIRATORY 30 Days Qty: 30 RF: 0 fluticasone propion-salmeterol [Advair Diskus] 250-50 mcg/dose Blister With Device 1 ea inhalation BID.RESPIRATORY Qty: 60 RF: 0 prednisone 10 mg tablet See Rx Instructions .ROUTE .COMPLEX Qty: 32 RF: 0 Continued hydrochlorothiazide 12.5 mg tablet 12.5 mg PO DAILY RF: 0 metformin 1,000 mg tablet 1,000 mg PO BID RF: 0 sulindac 150 mg tablet 150 mg PO BID RF: 0 amlodipine 10 mg tablet 10 mg PO DAILY RF: 0 lovastatin 20 mg tablet 20 mg PO DAILY RF: 0 finasteride 5 mg tablet 5 mg PO DAILY RF: 0 metoprolol succinate 50 mg tablet extended release 24 hr 50 mg PO DAILY RF: 0 oxybutynin chloride 10 mg tablet extended release 24hr 10 mg PO DAILY Qty: 30 RF: 3 alfuzosin 10 mg tablet extended release 24 hr 10 mg PO DAILY Qty: 90 RF: 3 Discharge Orders: Discharge Order (Routine); Ordered 04/19/20 Ordered By: Niko Pierce Other Ambulatory Orders: DME: Oxygen (Order) Location: None Selected Ordered By: Niko Pierce Referrals: Dangelo Pimentel MD [Physician] - 1 month Elder Gutierrez DO [Primary Care Provider] - Discharge Diet: Diabetic Discharge Activity: Resume usual activity Activity Restrictions/Additional Instructions: -Please hydrate well, socially distance, self isolate, hand mask, handwashing -Use antibiotics, inhalers, steroids as prescribed -Oxygen as prescribed Discharge Attestations Time Spent in Discharge Care*: less than 30 min Quality Metrics Clinical Quality Measures During this hospital stay, did patient experience: None Coding Level of Care Code Acute 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
[2020-04-19 15:00] VITALS: O2SAT 92; O2SAT 94
[2020-04-19 15:58] VITALS: BP 153/90; PULSE 65; RESP 20; TEMP 35.9; O2SAT 93
--- NOTE | 2020-04-19 16:58 | PC.NURSE ---
1610-PIID'S REMOVED FROM LEFT & RIGHT ARMS. 2X2 & COBAN APPLIED AFTER PRESSURE WAS HELD. REVIEWED DISCHARGE INSTRUCTIONS. WITH PT. MEDS TO BE PICKED UP AT [facility] BY PT. PERSONAL BELONGINGS SENT WITH PT, ESCORTED OUT TO PRIVATE VEHICLE BY VICE PRESIDENT OF NURSING & SECURITY. WISHED WELL.
--- NOTE | 2020-04-21 14:15 | PC.SOCIAL ---
Spoke with patient post discharge. He indicates he is feeling better. Shortness of breath present but minimal symptoms when up ambulating. He is drinking and eating well. He was able to get medications and called ahead of time to pharmacy explained he was COVID + and they brought meds out to his car. We reviewed importance of social distancing and handwashing for next 21 days. He verbalized understanding. Advised to call Dr Gutierrez office to arrange a televisit not that he is home. Patient will do this after we end our call. We discussed importance of taking all medications and to rinse mouth out after inhaler use. We discussed importance of letting ED or clinic know ahead of time if have to go for evaluation if at all possible. We discussed potential candidate for plasma donation and patient was agreeable to have information mailed to him. Patient verbalized understanding of all topics discussed. He was very pleased with his care while in the hospital. He indicates just limited space and was boring but nursing staff were attentive. Patient had no further questions. He did not go home on O2.
== END 2020-04-19 16:20 | disposition home or self-care (01) | DRG 177 ==
LOC: ER 16:40 → ICU 17:10
PROVIDERS: Emergency Medicine; Admitting Provider Student in an Organized Health Care Education/Training Program; PCP Electrodiagnostic Medicine; Visit Provider Family Medicine
DX: U07.1 COVID-19 (principal); J12.89 Other viral pneumonia; J96.01 Acute respiratory failure with hypoxia; N13.8 Other obstructive and reflux uropathy; I10 Essential (primary) hypertension; E11.9 Type 2 diabetes mellitus without complications; N40.1 Benign prostatic hyperplasia with lower urinary tract symptoms; R35.0 Frequency of micturition; R39.15 Urgency of urination; E78.00 Pure hypercholesterolemia, unspecified; Z79.84 Long term (current) use of oral hypoglycemic drugs
CPT/HCPCS: 12345; 36415; 36416; 36600; 71045; 71275; 80053; 81003; 82550; 82728; 82803; 82962; 83540; 83550; 83605; 83615; 83735; 83880; 84100; 84145; 84443; 84484; 85025; 85378; 85384; 85651; 86140; 87040; 87426; 87449; 87641; 87804; 93005; 96372; 96375; 99282; J1100; J1650; J1815; J2405; J2543; J3475; J7030; Q9967

== ENCOUNTER → 2020-05-12 09:16 | Outpatient (BNVA) | payer MEDICARE, OTHER, SELFPAY | PROVIDERS: PCP Electrodiagnostic Medicine; Visit Provider Urology | DX: N40.1 Benign prostatic hyperplasia with lower urinary tract symptoms (principal); N31.8 Other neuromuscular dysfunction of bladder | CPT/HCPCS: 81001 ==

== ENCOUNTER 2020-06-13 09:29 | Outpatient (CLI) | payer MEDICARE, OTHER, SELFPAY ==
--- NOTE | 2020-06-13 09:36 | FL_ITS ---
WS: [id number] DOUBLE CONTRAST UPPER GI EXAMINATION HISTORY: ESOPHAGITIS COMPARISON: 04/17/2020 CT. FLUOROSCOPY TIME: 1.3 minutes. Business Risk Analyst film reveals normal distribution of gas throughout the GI tract. No suspicious masses or calcif ications. Barium mixture traversed normally throughout the esophagus. There is a focal irregular protrusion fro m the RIGHT distal esophagus which demonstrates mild variable filling of contrast. Most consistent wi th an esophageal diverticulum. No filling defects within the stomach. Duodenal bulb was normally dist ensible and pliable. No gastroesophageal reflux Moderate hiatal hernia. FL/IA upper GI series 09340 IMPRESSION: 1. Small RIGHT lateral distal esophageal diverticulum. 2. Small reducible hiatal hernia. 3. Negative stomach.
== END 2020-06-13 09:30 | disposition home or self-care (01) ==
LOC: RADWPI 09:35
PROVIDERS: PCP Electrodiagnostic Medicine; Visit Provider Electrodiagnostic Medicine
DX: K20.90 Esophagitis, unspecified without bleeding (principal); Q39.6 Congenital diverticulum of esophagus; K44.9 Diaphragmatic hernia without obstruction or gangrene
CPT/HCPCS: 74240

== ENCOUNTER 2020-07-11 07:00 | Outpatient (CLI) | payer MEDICARE, OTHER, SELFPAY ==
--- NOTE | 2020-07-11 07:15 | US_ITS ---
WS: [id number] ULTRASOUND ABDOMEN LIMITED CLINICAL INFORMATION: epigastric pain COMPARISON: None. FINDINGS: Liver Size: Normal. Craniocaudal length: 17.2 cm. Echogenicity: Normal. Surface nodularity: None. Mass (size and location): None. Bile ducts Intrahepatic ducts: Normal. Common bile duct diameter: 0.4 cm. Gallbladder Normal. Gallstones: None. Gallbladder sludge: None. Gallbladder wall thickening: None. Pericholecystic fluid: None. Sonographic Small sign: Absent. Pancreas Not well visualized Spleen Removed Right kidney: Normal. Hydronephrosis: None. Size: 11.9 cm x 6.1 cm x 6.0 cm. Abdominal aorta and IVC Visualized portions are normal. Ascites: None. US/US gall bladder [id number] IMPRESSION: 1. Normal liver and gallbladder. 2. No hydronephrosis in right kidney. 3. Spleen has been removed.
== END 2020-07-11 07:01 | disposition home or self-care (01) ==
LOC: US 07:00
PROVIDERS: PCP Electrodiagnostic Medicine; Visit Provider Surgery
DX: R10.13 Epigastric pain (principal); Z90.81 Acquired absence of spleen
CPT/HCPCS: 76705

== ENCOUNTER 2020-07-27 09:17 | Outpatient (CLI) | payer MEDICARE, OTHER, SELFPAY ==
--- NOTE | 2020-07-27 10:00 | NM_ITS ---
WS: [id number] NUCLEAR MEDICINE HIDA SCAN WITH GALLBLADDER EJECTION FRACTION HISTORY: R10.11 - Right upper quadrant pain COMPARISON: Gallbladder ultrasound 07/11/2020 TECHNIQUE: The patient was intravenously injected with 8.0 mCi of TC99m Mebrofenin. Immediate imaging over the right upper quadrant was followed by 5 minute image and additional images for a total of 60 minutes. Normal uptake of radiotracer throughout the liver. Activity identified in the gallbladder at 10 minutes and well distended by 60 minutes. Activity in the proximal small bowel was seen by 60 minutes. Good washout of the radiotracer from the liver by 60 minutes. The patient then drank 8 ounces of Ensure Plus. Ejection fraction at 60 minutes was 91%. Normal GB ej ection fraction is 35-75%. Post fatty meal symptoms: None. NM/NM hepatobiliary w phar* [id number] IMPRESSION: 1. Normal HIDA scan. 2. Normal gallbladder ejection fraction.
== END 2020-07-27 09:18 | disposition home or self-care (01) ==
LOC: NM 09:18
PROVIDERS: PCP Electrodiagnostic Medicine; Visit Provider Surgery
DX: R10.11 Right upper quadrant pain (principal)
CPT/HCPCS: 78227; A9537

== ENCOUNTER 2020-08-02 08:17 | Outpatient (CLI) | payer MEDICARE, OTHER, SELFPAY ==
--- NOTE | 2020-08-02 08:23 | XR_ITS ---
WS: [id number] PROCEDURE: XR chest 2V* [id number] CLINICAL INFORMATION: ONYCHOMYCOSIS, ACUTE RESPIRATORY FAILURE, HYPERTENSION COMPARISON: April 17, 2020 FINDINGS: Heart: Cardiomegaly. Lungs: Chronic elevation left hemidiaphragm. Slight atelectasis left lower lobe. Moderate chronic emp hysematous changes. No acute pulmonary infiltrates. Bones: Chronic left mid rib fractures with callus formation. XR/XR chest 2V* [id number] IMPRESSION: 1. Stable cardiomegaly. 2. Chronic elevation left hemidiaphragm with slight atelectasis left lung base unchanged. 3. Moderate chronic emphysematous changes. 4. Chronic left rib fractures with callus formation.
== END 2020-08-02 08:18 | disposition home or self-care (01) ==
LOC: RADWPI 08:20
PROVIDERS: PCP Electrodiagnostic Medicine; Visit Provider Electrodiagnostic Medicine
DX: B35.1 Tinea unguium (principal); J96.00 Acute respiratory failure, unspecified whether with hypoxia or hypercapnia; I10 Essential (primary) hypertension; S22.42XA Multiple fractures of ribs, left side, initial encounter for closed fracture; X58.XXXA Exposure to other specified factors, initial encounter; J98.11 Atelectasis
CPT/HCPCS: 71046

== ENCOUNTER → 2020-08-08 09:47 | Outpatient (BNVA) | payer MEDICARE, OTHER, SELFPAY | PROVIDERS: PCP Electrodiagnostic Medicine; Visit Provider Surgery | DX: K22.8 Other specified diseases of esophagus (principal); Z20.828 Contact with and (suspected) exposure to other viral communicable diseases | CPT/HCPCS: 87635 ==

== ENCOUNTER 2020-08-15 06:40 | Day surgery (SDC) | payer MEDICARE, OTHER, SELFPAY ==
[2020-08-10 12:20] VITALS: BMI 33.0
[2020-08-15 07:04] VITALS: BP 172/92; PULSE 62; RESP 18; TEMP 36.3; O2SAT 97
[2020-08-15 07:15] LABS: Glucose Point of Care 112 mg/dL (70-110)
--- NOTE | 2020-08-15 07:39 | ANES.PREANE2 ---
Pre-Anesthetic Assessment Pre-Anesthetic Assessment: Height/Weight: Height 1.85 m Weight 113.398 kg Temp Pulse Resp BP Pulse Ox 97.3 F L 62 18 172/92 97 08/15/20 07:04 08/15/20 07:04 08/15/20 07:04 08/15/20 07:04 08/15/20 07:04 Preop Diagnosis: upper gi symptoms Proposed Procedure: Operation Date: 08/15/20 07:45 Proposed Procedures p EGD 70837 K22.8(Not Applicable) - Dangelo Pimentel MD Familial anesthetic complications: None Was Beta Jose taken within 24 hours: Yes Last intake: Intake Last Liquid Date 08/14/20 Last Liquid Time 21:00 Last Solid Date 08/14/20 Last Solid Time 12:00 Social: Social History: No alcohol and No tobacco Exam: Pre-Anes Outpt Exam: alert, oriented x 3, clear to auscultation bilaterally and regular rate & rhythm Airway: Cervical ROM: WNL MP: 4 Dentition: Full Pulmonary: Pulmonary: Sleep apnea (CPAP) CV/HEM: CV/HEM: HTN Metabolic: Metabolic: DM and Hyperlipidemia Comments: Hx covid Musc/skel: Comments: Anesthetic Plan: ASA status: 2 Anesthesia: MAC Risk of > 500 ml blood loss (7ml/kg in children): No PFSH Anesthesia PFSH: Medical History BPH loc w urin obs/LUTS Frequency-urgency syndrome Hypercholesteremia Hypertension Surgical History H/O colonoscopy several yrs ago H/O hernia repair H/O neck surgery H/O: knee surgery rt knee arthroscopic Family History Mother , at age 90 Alzheimer disease Father , at age 95 CHF (congestive heart failure) Denies family history of Anesthesia complication Bleeding disorder Cancer Social History Smoking and tobacco status: never smoked Alcohol intake: never Household members: spouse Marital status: Current occupational status: retired History of recent travel: No Data Anesthesia Other Labs: Laboratory Results - last 48 hr 08/15/20 07:11 POC Glucose 112 H Cardiac Studies: No Data to Display
--- NOTE | 2020-08-15 08:15 | W.PM.OPSUD ---
Surgery/Procedure H&P Update DATE OF PROCEDURE: August 15, 2020 DATE H&P PERFORMED: 07/29/20 H&P UPDATE INFORMATION: I have reviewed H&P completed within last 30 days, I have examined patient prior to procedure and No changes to prior documentation PREOP DIAGNOSIS: upper gi symptoms PLANNED PROCEDURE: Operation Date: 08/15/20 07:45 Proposed Procedures p EGD 40491 K22.8(Not Applicable) - Dangelo Pimentel MD
[2020-08-15 08:40] VITALS: PULSE 60; RESP 16; TEMP 36.1; O2SAT 96
[2020-08-15 08:52] VITALS: BP 137/84; PULSE 58; RESP 16; O2SAT 95
[2020-08-15] MEDS: sodium chloride 0.9% 1,000 ML 30 ML IV (09:06)
--- NOTE | 2020-08-15 18:36 | ANE.PACU2 ---
Inpatient post-anesthesia follow up: Airway intact: Yes Vital signs: Temperature 97 F Pulse Rate 58 Respiratory Rate 16 Blood Pressure 137/84 Pulse Oximetry 95 Oxygen Delivery Me thod Room Air Oxygen Flow Rate 2 Fraction of Inspir ed Oxygen Hydration adequate: Yes Nausea and vomiting: No Pain level: 1 Mental status: Baseline
== END 2020-08-15 09:08 | disposition home or self-care (01) ==
PROVIDERS: PCP Electrodiagnostic Medicine; Visit Provider Surgery
PROC: 0DJ08ZZ Inspection of Upper Intestinal Tract, Via Natural or Artificial Opening Endoscopic (ICD-10-PCS; CPT 43235; principal; 2020-08-15 07:45)
DX: R10.11 Right upper quadrant pain (principal); K22.8 Other specified diseases of esophagus; Z86.19 Personal history of other infectious and parasitic diseases; K29.70 Gastritis, unspecified, without bleeding; G47.30 Sleep apnea, unspecified; I10 Essential (primary) hypertension; E11.9 Type 2 diabetes mellitus without complications; E78.5 Hyperlipidemia, unspecified; N40.1 Benign prostatic hyperplasia with lower urinary tract symptoms; N13.8 Other obstructive and reflux uropathy; E78.00 Pure hypercholesterolemia, unspecified
CPT/HCPCS: 12345; 36416; 43235; 82962; J2704; J7030

== ENCOUNTER 2020-09-23 11:55 | Outpatient (CLI) | payer MEDICARE, OTHER, SELFPAY ==
--- NOTE | 2020-09-23 12:34 | USCV_ITS ---
Omid Martínez Age: 75 Gender: M : 1945 Exam Date: 09/23/2020 12:39 Ordering Phys: Murphy Ma MD Technologist: Fiorella Del Rosario Exam Location: [facility] – [place] Indication: POST LT KNEE REPLACEMENT HISTORY: Recent Lt Knee Replacement PROCEDURES: Venous duplex imaging was performed in only the left lower extremity. The following venous structures were evaluated: common femoral vein, profunda vein, proximal portion of the greater saphenous vein, superficial femoral vein, and the popliteal vein. In addition, the posterior tibial and peroneal trunk were evaluated. Serial compression, augmentation maneuvers, and spectral Doppler flow evaluation were performed. FINDINGS: Pt had Lt GSV stripped over 20 years ago No DVT seen in any vessel examined CONCLUSIONS No evidence of left lower extremity DVT. GSV stripping bilaterally Jim Milligan MD (Electronically Signed) Final Date: 23 September 2020 15:38 S
[2020-09-23 13:20] LABS: Basophils % 0.4 %; Eosinophils # 0.1 10^3/uL (0.0-0.8); Eosinophils % 0.6 %; Hemoglobin 12.2 g/dL (11.7-16.6); Lymphocytes # 1.1 10^3/uL (0.8-4.8); Lymphocytes % 11.5 %; Mean Corpuscular Hemoglobin 29.8 pg (28.0-34.0); Mean Corpuscular Volume 90.5 fL (80-94); Mean Platelet Volume 9.4 fL (7.4-10.4); Monocytes # 0.9 10^3/uL (0.2-0.9); Neutrophils # 7.24 10^3/uL (1.8-7.7); Neutrophils % 77.3 %; Nucleated Red Blood Cells % 0 %; Platelet Count 570 10^3/cmm (130-400); Red Blood Count 4.09 10^6/uL (4.1-5.3); Red Cell Distribution Width 12.7 % (12.1-15.1); White Blood Count 9.4 10^3/uL (4.0-10.0)
[2020-09-23 13:56] LABS: C Reactive Protein 16.5 mg/L (0.0-4.9)
[2020-09-23 14:52] LABS: Erythrocyte Sedimentation Rate 88 mm/hr (0-10)
== END 2020-09-23 11:56 | disposition home or self-care (01) ==
PROVIDERS: PCP Electrodiagnostic Medicine; Visit Provider Orthopaedic Surgery
DX: M79.605 Pain in left leg (principal); Z96.652 Presence of left artificial knee joint
CPT/HCPCS: 36415; 85025; 85651; 86140; 93971

== ENCOUNTER → 2020-11-10 07:59 | Outpatient (BNVA) | payer MEDICARE, OTHER, SELFPAY | PROVIDERS: PCP Electrodiagnostic Medicine; Visit Provider Urology | DX: R33.9 Retention of urine, unspecified (principal); N40.1 Benign prostatic hyperplasia with lower urinary tract symptoms | CPT/HCPCS: 81003 ==

== ENCOUNTER 2021-01-31 08:21 | Outpatient (CLI) | payer MEDICARE, OTHER, SELFPAY ==
--- NOTE | 2021-01-31 08:34 | XR_ITS ---
WS: [id number] CHEST 2 VIEWS HISTORY: ACUTE BRONCHITIS COMPARISON: None available. Lungs: Moderate elevation LEFT hemidiaphragm is similar to the prior study. Mild blunting of the cost ophrenic angle. No consolidations or pneumonia. Cardiac size: Normal. Mediastinum/Aorta: Normal mediastinum. Bones: Mild narrowing of the glenohumeral joints, LEFT greater than RIGHT. XR/XR chest 2V* [id number] IMPRESSION: 1. Stable mild elevation of the LEFT hemidiaphragm. 2. No pneumonia.
== END 2021-01-31 08:22 | disposition home or self-care (01) ==
PROVIDERS: PCP Electrodiagnostic Medicine; Visit Provider Electrodiagnostic Medicine
DX: J20.9 Acute bronchitis, unspecified (principal)
CPT/HCPCS: 71046

== ENCOUNTER → 2021-02-08 13:03 | Outpatient (BNVA) | payer MEDICARE, OTHER, SELFPAY | PROVIDERS: PCP Electrodiagnostic Medicine; Visit Provider Urology | DX: R33.9 Retention of urine, unspecified (principal); N31.8 Other neuromuscular dysfunction of bladder; N40.1 Benign prostatic hyperplasia with lower urinary tract symptoms | CPT/HCPCS: 81003 ==

== ENCOUNTER → 2021-08-10 07:58 | Outpatient (BNVA) | payer MEDICARE, OTHER, SELFPAY | PROVIDERS: PCP Electrodiagnostic Medicine; Visit Provider Urology | DX: R33.9 Retention of urine, unspecified (principal) | CPT/HCPCS: 81003 ==

== ENCOUNTER → 2022-08-09 08:44 | Outpatient (BNVA) | payer MEDICARE, OTHER, SELFPAY | PROVIDERS: PCP Electrodiagnostic Medicine; Visit Provider Urology | DX: N40.1 Benign prostatic hyperplasia with lower urinary tract symptoms (principal); R33.9 Retention of urine, unspecified; N31.8 Other neuromuscular dysfunction of bladder | CPT/HCPCS: 51741; 51798; 81003; 99213 ==

== ENCOUNTER 2023-11-21 04:27 | Emergency (ER) | payer MEDICARE, OTHER, SELFPAY ==
[2023-11-21 04:29] VITALS: BP 192/102; PULSE 64; RESP 20; TEMP 36.8; O2SAT 97; BMI 30.9
--- NOTE | 2023-11-21 04:44 | CTR_ITS ---
PROCEDURE INFORMATION: Exam: CT Cervical Spine Without Contrast Exam date and time: 11/21/2023 5:07 AM Age: 78 years old Clinical indication: Neck pain TECHNIQUE: Imaging protocol: Computed tomography of the cervical spine without contrast. Radiation optimization: All CT scans at this facility use at least one of these dose optimization techniques: automated exposure control; mA and/or kV adjustment per patient size (includes targeted exams where dose is matched to clinical indication); or iterative reconstruction. COMPARISON: CT head wo con* [id number] 11/21/2023 5:07 AM RADIATION DOSE METRICS: Total DLP (mGy-cm): 729 FINDINGS: Bones/joints: Diffuse degenerative changes throughout the visualized osseous structures. Multiple foci of foraminal narrowing, notably at C3-C4, where there is bilateral at least moderate osseous foraminal narrowing. Pharynx: Left palatine tonsilliths. Lungs: Lung apices are normal. Vasculature: Mild scattered calcified atherosclerotic disease. Soft tissues: Posterior nuchal ligament mineralization. CT/CT cervical spin wo con* [id number] IMPRESSION: 1. No acute or aggressive osseous abnormality. 2. Additional findings as above.
--- NOTE | 2023-11-21 04:44 | CTR_ITS ---
PROCEDURE INFORMATION: Exam: CT Head Without Contrast Exam date and time: 11/21/2023 5:07 AM Age: 78 years old Clinical indication: Pain; Headache; Additional info: Headache/neck pain TECHNIQUE: Imaging protocol: Computed tomography of the head without contrast. Radiation optimization: All CT scans at this facility use at least one of these dose optimization techniques: automated exposure control; mA and/or kV adjustment per patient size (includes targeted exams where dose is matched to clinical indication); or iterative reconstruction. COMPARISON: CT cervical spin wo con* [id number] 11/21/2023 5:07 AM RADIATION DOSE METRICS: Total DLP (mGy-cm): 917 FINDINGS: Brain: Scattered dural calcifications. Small frontal falcine lipoma. Cerebral ventricles: Choroid plexus calcifications. Pineal gland calcifications. Pituitary gland and sella: Partially empty sella. Paranasal sinuses: Pansinus mucosal thickening. Mastoid air cells: Visualized mastoid air cells are well aerated. Bones/joints: Unremarkable. No acute fracture. Soft tissues: Unremarkable. Other findings: Akgn-wa-zennzddv intracranial atherosclerotic disease. CT/CT head wo con* [id number] IMPRESSION: 1. No acute intracranial findings. 2. Additional findings as above.
--- NOTE | 2023-11-21 04:48 | W.ED.NECK ---
HPI - Neck Pain/Injury General: Chief Complaint: Neck Pain/Injury Stated Complaint: Neck Pain Time Seen by Provider: 11/21/23 04:44 History of Present Illness: 78-year-old male presents emergency department with complaints of neck pain that started this morning at approximately 1 AM. He states he has been unable to get comfortable since the pain started. He states the pain is worse if he attempts to turn his neck left or right more than approximately 10 degrees. He denies headache, nausea, vomiting fevers chills or night sweats. He denies numbness or tingling to the extremities he denies changes in vision. He denies known injury or trauma. He states he did have a anterior approach cervical vertebrae fusion many years ago and has had no problems since his surgery. He states that his current pain is a 4 out of 10 and worse if he attempts to look left or look right. He is able to flex and extend his head but states that his neck muscle do hurt. Review of Systems General: Reports: 10 or more systems reviewed and unremarkable except in HPI and below Const: Denies: fever(s), chills, body aches, fatigue or malaise ENMT: Denies: throat pain or odynophagia Card: Denies: chest pain Resp: Denies: dyspnea Musc: Reports: neck pain; Denies: back pain, joint stiffness, limited range of motion or muscle weakness PFSH ED PFSH: Medical History BPH loc w urin obs/LUTS Frequency-urgency syndrome Hypercholesteremia Hypertension Urinary retention Surgical History H/O colonoscopy several yrs ago H/O esophagogastroduodenoscopy (08/15/20) H/O hernia repair H/O neck surgery H/O: knee surgery rt knee arthroscopic Family History Mother , at age 90 Alzheimer disease Father , at age 95 Congestive heart failure (CHF) Denies family history of Anesthesia complication Bleeding disorder Cancer Social History Smoking and tobacco/nicotine status: never used tobacco/nicotine Alcohol intake: never Substance/Drug Use: never Household members: spouse Marital status: Current occupational status: retired Physical Exam Narrative: EXAM NARRATIVE: Constitutional: the patient appears well nourished and with normal development. Vital signs reviewed as documented. No acute distress, GCS 15, alert and oriented x 4-person, place, time and situation. HENMT: Normocephalic, atraumatic. External ears normal appearance without drainage. Nose without drainage, normal appearance. Mucus membranes moist. Neck is supple, No jugular venous distension, trachea is midline, no appreciable carotid bruits. No lymphadenopathy. No meningeal signs. Flexion, extension is without pain. Patient does have increased pain to the trapezius muscles with lateral rotation left or right. Eyes: Pupils are equal, round, reactive to light and accommodation. No scleral icterus. Extra-ocular movement are intact. Thorax is symmetrical and with equal rise and fall with respirations. Resp: Lungs are clear to auscultation. No wheezes, rales, crackles or ronchi at present. Cardio: Regular rate and rhythm. Positive S1, S2. No appreciable murmurs, rubs or gallops. GI: Abdominal exam reveals normal bowel sounds to all quadrants. No organomegaly. No obvious palpable masses noted. No hepatomegally appreciated. Soft, non-tender to palpation. Extremity: Extremities are non-edematous and both femoral and pedal pulses are 2+ and equal bilaterally. Moves all extremities well, sensation in all extremities. Neuro: Alert and oriented x4, person, place, time and situation. Cranial nerves II through XII are grossly intact, there is no focal neurological deficits that I can appreciate at present. Sensation intact to all extremities. 2-point discrimination intact. Light touch intact to all extremities. Motor strength in the upper and lower extremities are equal and bilateral 5/5. Psych: Cooperative, calm, normal thought process, appropriate judgment. Skin: No lesions, rashes. No gross abnormalities noted. Back: Symmetrical, no obvious deformity, No CVA tenderness Course Reevaluation(s): Reevaluation #1: Reevaluation the patient demonstrates a normal CBC. He states his pain is better and is currently a 7 out of 10 at present. Time: 05:33 Vital Signs: Vital signs: Vital Signs Temperature 98.2 F 11/21/23 04:29 Pulse Rate 64 11/21/23 04:29 Respiratory Rate 16 11/21/23 05:37 Blood Pressure 192/102 11/21/23 04:29 Pulse Oximetry 97 11/21/23 04:29 Oxygen Delivery Me thod Room Air 11/21/23 04:29 MDM - Neck Pain/Injury Medical Decision Making Physical exam completed and documented I will obtain a CBC, CMP, ESR, and CRP as well as provide the patient IV access and a CT scan of his head and neck for evaluation. I will provide the patient antinausea medicine as well as pain medication and muscle relaxer. Differential diagnosis includes musculoskeletal strain, torticollis, cervical stenosis, viral meningitis, cervical sprain Medical Records I reviewed the patient's medical records. Lab Data I reviewed the patient's lab results. 11/21/23 05:00 11/21/23 05:00 Radiology Impressions Cervical Spine CT 11/21/23 04:44 IMPRESSION: 1. No acute or aggressive osseous abnormality. 2. Additional findings as above. Head CT 11/21/23 04:44 IMPRESSION: 1. No acute intracranial findings. 2. Additional findings as above. Laboratory Results WBC 9.89 10^3/uL (3.29-11.43) 11/21/23 05:00 RBC 4.47 10^6/uL (3.85-5.65) 11/21/23 05:00 Hgb 13.90 g/dL (11.27-16.99) 11/21/23 05:00 Hct 40.5 % (37-53) 11/21/23 05:00 MCV 90.6 fl (82-101) 11/21/23 05:00 MCH 31.1 pg (27-33) 11/21/23 05:00 MCHC 34.3 g/dL (30-55) 11/21/23 05:00 RDW 13.2 % (12.1-15.1) 11/21/23 05:00 Plt Count 244 10^3/cmm (157-399) 11/21/23 05:00 MPV 11.1 fL (7.4-10.4) H 11/21/23 05:00 Neut % (Auto) 69.0 % 11/21/23 05:00 Lymph % (Auto) 16.6 % 11/21/23 05:00 [place] % (Auto) 10.8 % 11/21/23 05:00 Eos % (Auto) 2.9 % 11/21/23 05:00 Baso % (Auto) 0.5 % 11/21/23 05:00 Neut # (Auto) 6.82 10^3/uL (1.8-7.7) 11/21/23 05:00 Lymph # (Auto) 1.6 10^3/uL (0.8-4.8) 11/21/23 05:00 [place] # (Auto) 1.1 10^3/uL (0.2-0.9) H 11/21/23 05:00 Eos # (Auto) 0.3 10^3/uL (0.0-0.8) 11/21/23 05:00 Baso # (Auto) 0.1 10^3/uL (0.0-0.1) 11/21/23 05:00 Nucleated RBC % (auto) 0 % 11/21/23 05:00 Nucleated RBCs # 0.0 /100WBC 11/21/23 05:00 ESR 13 mm/hr (0-10) H 11/21/23 05:00 Sodium 143 mmol/L (136-145) 11/21/23 05:00 Potassium 3.9 mmol/L (3.5-5.1) 11/21/23 05:00 Chloride 105 mmol/L (98-107) 11/21/23 05:00 Carbon Dioxide 27 mmol/L (22-29) 11/21/23 05:00 Anion Gap 14.9 (5-19) 11/21/23 05:00 BUN 15 mg/dL (8-23) 11/21/23 05:00 Creatinine 0.8 mg/dL (0.7-1.2) 11/21/23 05:00 GFR Calculation Not Reportable 11/21/23 05:00 Glucose 115 mg/dL (65-115) 11/21/23 05:00 Calculated Osmolality 298 mOsm/kg (285-295) H 11/21/23 05:00 Calcium 9.1 mg/dL (8.5-10.5) 11/21/23 05:00 Total Bilirubin 0.6 mg/dL (0.15-1.2) 11/21/23 05:00 AST 21 U/L (0-40) 11/21/23 05:00 ALT 23 U/L (0-41) 11/21/23 05:00 Alkaline Phosphatase 149 U/L (40-130) H 11/21/23 05:00 C-Reactive Protein 3.0 mg/L (0.0-4.9) 11/21/23 05:00 Total Protein 7.1 g/dL (6.6-8.7) 11/21/23 05:00 Albumin 4.0 g/dL (3.5-5.2) 11/21/23 05:00 Globulin 3.1 g/dL (1.3-4.6) 11/21/23 05:00 All radiology interpretation(s) finalized by discharge Discharge Plan Discharge Patient Disposition: Home Clinical Impression: Strain of neck muscle Qualifiers: Encounter type: initial encounter Qualified Code(s): S16.1XXA - Strain of muscle, fascia and tendon at neck level, initial encounter Condition: Stable Prescriptions: New hydrocodone-acetaminophen 10-325 mg tablet 1 tab PO Q6H PRN (Reason: pain) Qty: 14 0RF cyclobenzaprine 10 mg tablet 10 mg PO Q8H Qty: 14 0RF naproxen 500 mg tablet 500 mg PO Q12H PRN (Reason: pain) Qty: 20 0RF No Action sulindac 150 mg tablet 150 mg PO BID hydrochlorothiazide 12.5 mg tablet 12.5 mg PO DAILY metformin 1,000 mg tablet 1,000 mg PO BID amlodipine 10 mg tablet 10 mg PO DAILY lovastatin 20 mg tablet 20 mg PO DAILY metoprolol succinate 50 mg tablet extended release 24 hr 50 mg PO DAILY multivitamin Tablet 1 tab PO DAILY oxybutynin chloride 10 mg tablet extended release 24hr See Rx Instructions .ROUTE .COMPLEX Qty: 90 3RF Dose Instruction: Take 1 tablet by mouth once daily Rx Instructions: Take 1 tablet by mouth once daily alfuzosin 10 mg tablet extended release 24 hr See Rx Instructions .ROUTE .COMPLEX Qty: 90 3RF Dose Instruction: Take 1 tablet by mouth once daily Rx Instructions: Take 1 tablet by mouth once daily finasteride 5 mg tablet 5 mg PO DAILY Qty: 90 3RF Discharge Orders: Discharge ED (Routine); Ordered 11/21/23 Ordered By: Charanjit Lyles Referrals: Elder Gutierrez, [Primary Care Provider] - Discharge Diet: Usual diet Discharge Activity: Resume usual activity Patient Instructions: Opioid Safety, Pain Management Activity Restrictions/Additional Instructions: Activity Restrictions/Additional Instructions: [facility] you [email or web address] your healthcare needs today. Please realize that you were seen in the Emergency Department and that we are providing you with an emergency medical screening exam and this may not be a complete and all inclusive of all the testing and or medical work-up that you may need to determine your ailment or severity of your illness. It is very important that you follow-up as instructed with your Primary care provider or Specialist for additional evaluation and to discuss your medical treatment plan. You may return to the Emergency Department should you have concerns or if your condition changes or worsens in any way. Coding Level of Care Code ED [employer] for Jocelyn Gates
[2023-11-21] MEDS: ondansetron 2 mg/ML SDV 2 mL 4 MG IVP (04:55)
[2023-11-21] MEDS: morphine 4 mg/mL SDV 1 mL IVP ×2 (04:55→05:37)
[2023-11-21] MEDS: orphenadrine 30 mg/mL Inj 2 mL 60 MG IVP (04:55)
[2023-11-21 05:08] LABS: Erythrocyte Sedimentation Rate 13 mm/hr (0-10)
[2023-11-21 05:10] LABS: Basophils # 0.1 10^3/uL (0.0-0.1); Basophils % 0.5 %; Eosinophils # 0.3 10^3/uL (0.0-0.8); Eosinophils % 2.9 %; Hematocrit 40.5 % (37-53); Lymphocytes # 1.6 10^3/uL (0.8-4.8); Lymphocytes % 16.6 %; Mean Corpuscular HGB Conc 34.3 g/dL (30-55); Mean Corpuscular Hemoglobin 31.1 pg (27-33); Mean Corpuscular Volume 90.6 fl (82-101); Mean Platelet Volume 11.1 fL (7.4-10.4); Monocytes # 1.1 10^3/uL (0.2-0.9); Monocytes % 10.8 %; Neutrophils # 6.82 10^3/uL (1.8-7.7); Nucleated Red Blood Cells % 0 %; Platelet Count 244 10^3/cmm (157-399); Red Blood Count 4.47 10^6/uL (3.85-5.65); Red Cell Distribution Width 13.2 % (12.1-15.1); White Blood Count 9.89 10^3/uL (3.29-11.43)
[2023-11-21 05:20] VITALS: BP 174/97; PULSE 69; RESP 16; O2SAT 95
[2023-11-21 05:32] LABS: Alanine Aminotransferase 23 U/L (0-41); Alkaline Phosphatase 149 U/L (40-130); Anion Gap 14.9 (5-19); Aspartate Amino Transferase 21 U/L (0-40); Blood Urea Nitrogen 15 mg/dL (8-23); Calcium 9.1 mg/dL (8.5-10.5); Carbon Dioxide 27 mmol/L (22-29); Chloride 105 mmol/L (98-107); Creatinine Clr Calc Pharmacy 95.9242; Globulin 3.1 g/dL (1.3-4.6); Glucose 115 mg/dL (65-115); Osmolality Calculated 298 mOsm/kg (285-295); Potassium 3.9 mmol/L (3.5-5.1); Sodium 143 mmol/L (136-145); Total Bilirubin 0.6 mg/dL (0.15-1.2); Total Protein 7.1 g/dL (6.6-8.7)
[2023-11-21 05:37] VITALS: RESP 16
[2023-11-21] MEDS: ketorolac 30 mg/mL INJ IVP (06:11)
[2023-11-21] MEDS: fentaNYL 50 mcg/mL INJ 2mL IVP (06:11)
[2023-11-21 06:37] VITALS: BP 184/75; PULSE 61; RESP 14; O2SAT 94
== END 2023-11-21 06:38 | disposition home or self-care (01) ==
PROVIDERS: Emergency Provider Internal Medicine; PCP Electrodiagnostic Medicine
DX: S16.1XXA Strain of muscle, fascia and tendon at neck level, initial encounter (principal); I10 Essential (primary) hypertension; X58.XXXA Exposure to other specified factors, initial encounter
CPT/HCPCS: 70450; 72125; 80053; 85025; 85651; 86140; 96374; 96375; 96376; 99285; J1885; J2270; J2360; J2405; J3010

== ENCOUNTER 2025-06-30 07:16 | Outpatient (CLI) | payer MEDICARE, OTHER, SELFPAY ==
--- NOTE | 2025-06-30 07:25 | MR_ITS ---
WS: [id number] MRI CERVICAL SPINE NONCONTRAST HISTORY: cervicalgia COMPARISON: Radiograph 06/02/2025, CT 11/21/2023 Technique: Multiplanar, multisequence noncontrast imaging of the cervical spine. Straightening of the normal cervical lordosis. 2 mm retrolisthesis of C6. Fusion across the C5-6 disc space which is narrowed. No acute marrow edema. No acute cervical spine fracture. Signal within the cervical cord is normal. Visualized posterior fossa is unremarkable. Craniocervical junction, C1 and C2 relationship, odontoid process and soft tissues are normal. C2-C3: Mild disc bulging and osteophytic ridging. Moderate to severe bilateral facet arthritis. Small central disc protrusion and uncinate osteophytes. Mild central with moderate foraminal stenosis. Small amount of edema in the RIGHT facets of C2-3. There is also surrounding soft tissue edema. C3-C4: Diffuse osteophytic ridging with central disc protrusion. Effacement of CSF. Severe facet arthritis. Moderate to severe central and bilateral foraminal stenosis. RIGHT facet joint synovitis and edema. C4-C5: Marked osteophytic ridging with disc bulging and facet arthritis. Severe central and bilateral foraminal stenosis. C5-C6: Very mild central and bilateral foraminal stenosis. Mild facet arthritis. C6-C7: Diffuse osteophytic ridging with disc bulging. Severe facet arthritis. Moderate to severe central with severe bilateral foraminal stenosis. C7-T1: Mild LEFT foraminal stenosis. T1-T2: Mild central with moderate bilateral foraminal stenosis. Marked facet arthritis. Paraspinal soft tissue are normal. MR/MR cervical spin wo con* [id number] IMPRESSION: 1. Advanced cervical spondylosis with multiple levels of significant stenosis. Stenosis due to combination of osteophytic ridging, disc disease and marked fa cet arthritis. 2. No acute vertebral body fracture. 3. Marrow edema and soft tissue edema surrounding the RIGHT C2-3 and C3-4 face ts. 4. Mild central and moderate foraminal stenosis at C2-3. 5. Moderate to severe central and bilateral foraminal stenosis at C3-4, C4-5 a nd C6-7. 6. Mild central and moderate foraminal stenosis at T1-T2. 7. Mild central and bilateral foraminal stenosis at C5-6.
== END 2025-06-30 07:17 | disposition home or self-care (01) ==
PROVIDERS: PCP Electrodiagnostic Medicine; Visit Provider Electrodiagnostic Medicine
DX: M50.31 Other cervical disc degeneration, high cervical region (principal); M48.02 Spinal stenosis, cervical region; M47.892 Other spondylosis, cervical region; R60.9 Edema, unspecified; M48.04 Spinal stenosis, thoracic region; M25.78 Osteophyte, vertebrae; M47.812 Spondylosis without myelopathy or radiculopathy, cervical region
CPT/HCPCS: 72141